=== PATIENT | male | born 1950 | race Caucasian/White ===

== ENCOUNTER 2020-05-24 07:00 | Day surgery (SDC) | payer MEDICARE ==
[2020-05-23 12:44] VITALS: BMI 25.8
[2020-05-24 07:59] VITALS: BP 148/87; TEMP 97.4
--- NOTE | 2020-05-24 09:32 | CT ---
CT lumbar spine with contrast: (CT lumbar myelogram) 05/24/2020 HISTORY: 69-year-old male with ICD-10: "M 99.83, lumbar foraminal stenosis" "M 54.16, radiculopathy of lumbar region" "M 48.061, spinal stenosis, lumbar region without neurogenic claudication" COMPARISON: Noncontrast CT of 07/25/2017 FINDINGS: A few low-attenuation lesions in bilateral kidneys, incompletely visualized, right more than left, wi thout major interval change, at least most of which are probably cysts. 5 lumbar-type vertebrae. No high-grade disc space narrowing at any level. Vertebral body heights are maintained. No scoliosis. No spondylolysis or spondylolisthesis. Conus medullaris terminates at L1-2. Qualitative description of degrees of central spinal canal stenosis and neural foraminal stenosis on the previous report was based on the limitations of a non myelographic CT. The descriptions on the current study may differ slightly, with the benefit of high-resolution because this is a CT myelogram . T12-L1: Essentially normal. L1-2: Essentially normal. L2-3: No significant central spinal canal stenosis. Mild bilateral neural foraminal stenosis due to m ild disc bulge. Mild bilateral facet DJD. L3-4: Mild diffuse disc bulge, larger than the one at L2-3. Mild to moderate bilateral facet DJD, rig ht greater than left. Mild to moderate right neural foraminal stenosis. Moderate left neural foraminal stenosis, with slight chronic deflection of the exiting left L3 nerve root. Mild central sp inal canal stenosis. L4-5: Severe bilateral degenerative facet hypertrophy, moderate ligamentum flavum thickening, and mil d diffuse disc bulge, result in severe central spinal canal stenosis. Moderate bilateral neural foraminal stenosis. L5-S1: Moderate right neural foraminal stenosis. No high-grade left neural foraminal stenosis. No tenzin tral spinal canal stenosis. Asymmetrically severe right-sided facet degenerative hypertrophy. No high-grade left facet DJD. IMPRESSION: 1.) Severe central spinal canal stenosis at L4-5, mostly due to posterior element degenerative hypert rophy. 2.) Moderate neural foraminal stenosis at several levels.
--- NOTE | 2020-05-24 12:24 | RAD ---
MYELOGRAM LUMBAR: DATE: 05/24/2020 HISTORY: 69-year-old male ICD-10: M 99.83, lumbar foraminal stenosis. M 54.16, radiculopathy of lumbar region. M 48.061, spinal stenosis, lumbar region without neurogenic claudication TECHNIQUE: Signed informed consent obtained. Patient placed prone on fluoroscopy table. Skin of lower back prepa red and draped in usual sterile fashion. 25-gauge needle used to apply buffered lidocaine superficially and deeply. Level selected:L2-3. Approach:right paramedian interlaminar. 22-gauge spinal needle advanced into spinal canal under brief, intermittent fluoroscopy. Upon return of clear CSF, 10 mL Isovue [id number] media was injected into the intrathecal space. Spinal needle was removed. Patient tolerated procedure well. No complications. Total fluoroscopy time:1.1 minutes. Dose area product:152 uGy*m^2. FINDINGS: There is severe central spinal canal stenosis at L4-5. IMPRESSION: Severe central spinal canal stenosis at L4-5. See separate report of subsequent CT lumbar myelogram.
[2020-05-24] MEDS ORDERED: Iopamidol-M 200 41% 20 ML VIAL ONE (13:45)
== END 2020-05-24 09:50 | disposition home or self-care (01) ==
LOC: RAD 07:00
PROVIDERS: ATTEND Specialist
PROC: B01B1ZZ Fluoroscopy of Spinal Cord using Low Osmolar Contrast (ICD-10-PCS; principal; 2020-05-24)
DX: M48.061 Spinal stenosis, lumbar region without neurogenic claudication (principal); M99.83 Other biomechanical lesions of lumbar region; M54.16 Radiculopathy, lumbar region; M47.812 Spondylosis without myelopathy or radiculopathy, cervical region; I10 Essential (primary) hypertension; I48.91 Unspecified atrial fibrillation; F32.9 Major depressive disorder, single episode, unspecified; E03.9 Hypothyroidism, unspecified; Z79.82 Long term (current) use of aspirin; Z79.899 Other long term (current) drug therapy; Z88.7 Allergy status to serum and vaccine; Z95.0 Presence of cardiac pacemaker
CPT/HCPCS: 62304; 72132; Q9966